=== PATIENT | female | born 1965 | race Caucasian/White ===

== ENCOUNTER 2017-01-31 14:03 | Emergency (ER) | payer OTHER ==
[~2017-01-31] VITALS: Ht 162.6 cm; Wt 86.6 kg
[2017-01-31 14:08] VITALS: Ht 162.6 cm; Wt 86.6 kg
[2017-01-31 16:18] VITALS: BP 179/91
== END 2017-01-31 16:18 | disposition home or self-care (01) ==
LOC: ED 14:03
DX: S00.03XA Contusion of scalp, initial encounter (principal); S70.12XA Contusion of left thigh, initial encounter; W18.09XA Striking against other object with subsequent fall, initial encounter; Y93.89 Activity, other specified; Y92.89 Other specified places as the place of occurrence of the external cause; Y99.8 Other external cause status

== ENCOUNTER 2017-11-09 12:02 | Emergency (ER) | payer SELFPAY ==
[2017-11-09 12:28] VITALS: Ht 162.6 cm
[2017-11-09 14:36] VITALS: BP 140/78
== END 2017-11-09 14:36 | disposition home or self-care (01) ==
LOC: ED 12:02
DX: S00.33XA Contusion of nose, initial encounter (principal); S40.011A Contusion of right shoulder, initial encounter; S80.02XA Contusion of left knee, initial encounter; S80.01XA Contusion of right knee, initial encounter; W01.0XXA Fall on same level from slipping, tripping and stumbling without subsequent striking against object, initial encounter; Y93.89 Activity, other specified; Y92.89 Other specified places as the place of occurrence of the external cause; Y99.8 Other external cause status

== ENCOUNTER 2019-12-27 11:06 | Emergency (ER) | payer MEDICAID, SELFPAY ==
[~2019-12-27] VITALS: Ht 162.6 cm; Wt 86.2 kg
[2019-12-27 11:08] VITALS: Ht 162.6 cm; Wt 86.2 kg
[2019-12-27 12:32] VITALS: BP 134/81
== END 2019-12-27 12:32 | disposition home or self-care (01) ==
LOC: ED 11:06
DX: U07.1 COVID-19 (principal); I10 Essential (primary) hypertension
CPT/HCPCS: U0003